=== PATIENT | male | born 1965 | race Hispanic/Latino ===

== ENCOUNTER 2017-04-23 20:14 | Emergency (ER) | payer BC, OTHER | END 2017-04-23 20:55 | disposition left against medical advice (07) | LOC: ERS 20:14 | DX: Z53.21 Procedure and treatment not carried out due to patient leaving prior to being seen by health care provider (principal) ==

== ENCOUNTER 2018-12-09 01:45 | Outpatient (CLI) | payer BC ==
[2018-12-09 17:01] LABS: #Basophils 0.1 thou/uL (0.0-0.2); #Eosinphils 0.3 thou/uL (0.0-0.7); #Lymphocytes 2.3 thou/uL (1.20-3.40); #Monocytes 0.6 thou/uL (0.11-0.59); %Basophils 0.7 % (0.0-1.0); %Eosinophils 3.1 % (0.0-10.0); %Lymphocytes 22.1 % (21.0-51.0); %Monocytes 5.7 % (0.0-10.0); %Neutrophils 68.4 % (42.0-75.0); Hemoglobin 13.7 g/dL (14.0-18.0); Mean Corpuscular HGB CONC 34.2 g/dL (32.0-36.0); Mean Corpuscular Volume 93.4 fL (78.0-98.0); Mean Platelet Volume 8.6 fL (7.4-10.4); Platelet Count 258 thou/uL (130-400); RBC Distribution Width 11.5 % (11.5-14.5); Red Blood Cell (RBC) Count 4.28 mill/uL (4.70-6.10); White Blood Cell (WBC) Count 10.2 thou/uL (4.8-10.8)
[2018-12-09 17:33] LABS: Anion Gap 13 mmol/L (10-20); BUN (Urea Nitrogen) 11 mg/dL (8.4-25.7); Calc. Creatinine Clearance 0 mL/min (70-130); Calcium 9.9 mg/dL (7.8-10.44); Carbon Dioxide 27 mmol/L (22-29); Chloride 101 mmol/L (98-107); Estimated GFR-MDRD Greater than 90; Glucose 274 mg/dL (70-105); Potassium 4.1 mmol/L (3.5-5.1); Sodium 137 mmol/L (136-145)
--- NOTE | 2018-12-11 09:17 | EKG ---
Test Reason : Blood Pressure : / mmHG Vent. Rate : 059 BPM Atrial Rate : 059 BPM P-R Int : 176 ms QRS Dur : 102 ms QT Int : 386 ms P-R-T Axes : 044 002 006 degrees QTc Int : 382 ms Sinus bradycardia Otherwise normal ECG When compared with ECG of 29-NOV-2015 04:54, No significant change was found Confirmed by DR. Aamir MOORE MD ([id number]) on 12/11/2018 9:17:02 AM Referred By: TREE Confirmed By:DR. Aamir MOORE MD
== END 2018-12-09 01:46 | disposition home or self-care (01) ==
LOC: LABBT 01:45
PROVIDERS: ATTEND Orthopaedic Surgery
DX: Z01.818 Encounter for other preprocedural examination (principal); G56.02 Carpal tunnel syndrome, left upper limb
CPT/HCPCS: 80048; 85025; 93005; 93010

== ENCOUNTER 2018-12-10 07:56 | Day surgery (SDC) | payer BC ==
[2018-12-09 16:23] VITALS: BMI 37.8
[2018-12-10] MEDS ORDERED: Clindamycin/D5W 600 mg/50 ml Premix Bag ONE (08:37)
[2018-12-10] MEDS ORDERED: Fentanyl 100 MCG/2 ML VIAL ONE (09:05)
[2018-12-10] MEDS ORDERED: Lidocaine 1% (PF) 30 ML VIAL ONE (09:10)
--- NOTE | 2018-12-10 11:51 | OP ---
DATE OF PROCEDURE: 12/10/2018 PREOPERATIVE DIAGNOSIS: Left carpal tunnel syndrome. POSTOPERATIVE DIAGNOSIS: Left carpal tunnel syndrome. PROCEDURES PERFORMED: 1. Left open carpal tunnel release. 2. Placement of short-arm volar splint, left upper extremity. UMBRELLA SUPERVISOR: None. ESTIMATED BLOOD LOSS: Minimal. COMPLICATIONS: None. ANESTHESIA: The patient had TIVA with local. DISPOSITION: He went back to [facility] in stable condition. INDICATIONS: This is a 53-year-old male, who has bilateral carpal tunnel syndrome with the left being worse than the right. At this time , he is presenting for left open carpal tunnel release. DESCRIPTION OF PROCEDURE: After all appropriate consent forms were explained and signed, the patient was taken back to the operating room and at this time was given IV sedation. A well-padded tourniquet was placed on the left arm and the arm was then prepped and draped in the standard surgical fashion. The incision was then drawn out and infiltrated with plain lidocaine. Limb was exsanguinated and tourniquet taken up to 250 mmHg. At this time, using Loupe magnification, a 15 blade was used to incise down through skin. Bipolar cautery was used to coagulate any brisk venous bleeding. We then placed a small hemostat to protect the underlying median nerve and transected the transverse carpal ligament using multiple 15 blades as well as scissors. Once this was done, a small finger was inserted to palpate for any remaining bands. At this time, a moist Ray-Yojana sponge was placed into the wound. Tourniquet was let down and pressure was held. Bipolar cautery used to coagulate any brisk venous bleeding. The wound was then irrigated with saline solution and we then evaluated the nerve. The nerve was found to be significantly injected, the nerve was intact, there were no masses noted, and the underlying flexor tendons were in good condition. At this time, we irrigated and dried the wound. We then placed multiple nylon stitches to close the incision. A bulky sterile hand dressing and a small volar splint were then placed. The patient was then awakened and taken to recovery in stable condition. All counts were correct at the end of the case. The patient received preoperative IV antibiotics. Job ID: [id number]
== END 2018-12-10 11:25 | disposition home or self-care (01) ==
LOC: SDC 07:56
PROVIDERS: ATTEND Orthopaedic Surgery
PROC: 01N50ZZ Release Median Nerve, Open Approach (ICD-10-PCS; principal; 2018-12-10)
DX: G56.03 Carpal tunnel syndrome, bilateral upper limbs (principal); G56.21 Lesion of ulnar nerve, right upper limb; I10 Essential (primary) hypertension; E11.9 Type 2 diabetes mellitus without complications; E78.00 Pure hypercholesterolemia, unspecified; E66.9 Obesity, unspecified; Z68.37 Body mass index [BMI] 37.0-37.9, adult; Z79.84 Long term (current) use of oral hypoglycemic drugs; Z79.899 Other long term (current) drug therapy; Z87.891 Personal history of nicotine dependence; Z88.1 Allergy status to other antibiotic agents
CPT/HCPCS: 36416; J2001; J3010; J3490

== ENCOUNTER 2019-02-23 12:49 | Outpatient (CLI) | payer BC ==
[2019-02-23 13:46] LABS: #Basophils 0.1 thou/uL (0.0-0.2); #Eosinphils 0.4 thou/uL (0.0-0.7); #Lymphocytes 2.8 thou/uL (1.20-3.40); #Monocytes 0.5 thou/uL (0.11-0.59); #Neutrophils 5.1 thou/uL (1.40-6.50); %Basophils 0.6 % (0.0-1.0); %Lymphocytes 31.6 % (21.0-51.0); %Monocytes 5.7 % (0.0-10.0); Mean Corpuscular HGB CONC 34.6 g/dL (32.0-36.0); Mean Corpuscular Volume 92.6 fL (78.0-98.0); Mean Platelet Volume 8.8 fL (7.4-10.4); Platelet Count 207 thou/uL (130-400); RBC Distribution Width 11.9 % (11.5-14.5); Red Blood Cell (RBC) Count 4.36 mill/uL (4.70-6.10); White Blood Cell (WBC) Count 8.8 thou/uL (4.8-10.8)
[2019-02-23 14:21] LABS: Anion Gap 16 mmol/L (10-20); BUN (Urea Nitrogen) 20 mg/dL (8.4-25.7); Calc. Creatinine Clearance 0 mL/min (70-130); Calcium 10.2 mg/dL (7.8-10.44); Carbon Dioxide 26 mmol/L (22-29); Chloride 103 mmol/L (98-107); Estimated GFR-MDRD Greater than 90; Glucose 134 mg/dL (70-105); Potassium 4.5 mmol/L (3.5-5.1); Sodium 140 mmol/L (136-145)
== END 2019-02-23 12:50 | disposition home or self-care (01) ==
LOC: LABBT 12:49
PROVIDERS: ATTEND Orthopaedic Surgery
DX: Z01.818 Encounter for other preprocedural examination (principal); G56.01 Carpal tunnel syndrome, right upper limb
CPT/HCPCS: 80048; 85025; 93005; 93010

== ENCOUNTER 2020-05-22 08:46 | Outpatient (CLI) | payer BC ==
--- NOTE | 2020-05-22 09:48 | MRI ---
MRI cervical spinewithout contrast: INDICATIONS: Cervical pain. Paresthesias COMPARISON:None FINDINGS: Vertebral bodies maintain normal height and alignment and exhibit normal signal. Disc spaces are preserved. No significant disc bulge or spondylosis at any of the visualized cervical levels. C2-3: No central canal or foraminal stenosis. C3-4:No central canal or foraminal stenosis. C4-5:No significant disc bulge or spondylosis. Mild left foraminal narrowing due to facet and uncinat e hypertrophy. C5-6:No central canal or foraminal stenosis. C6-7:No central canal or foraminal stenosis. C7-T1:No central canal or foraminal stenosis. Cervical cord:Cervical spinal cord exhibits normal signal. Soft tissues:No soft tissue abnormality identified. IMPRESSION: 1.No significant disc bulge or spondylosis. Mild facet and uncinate hypertrophy at several levels. Th is produces mild left foraminal narrowing at C4-5.
== END 2020-05-22 08:47 | disposition home or self-care (01) ==
LOC: BICMRI 08:46
PROVIDERS: ATTEND Orthopaedic Surgery
DX: R20.0 Anesthesia of skin (principal); R20.2 Paresthesia of skin; M50.821 Other cervical disc disorders at C4-C5 level; M48.02 Spinal stenosis, cervical region
CPT/HCPCS: 72141

== ENCOUNTER 2021-04-11 11:22 | Outpatient (CLI) | payer BC | END 2021-04-11 11:23 | disposition home or self-care (01) | LOC: BICRAD 11:22 | PROVIDERS: ATTEND Physician Assistant | DX: M25.561 Pain in right knee (principal) ==

== ENCOUNTER 2021-05-21 09:40 | Outpatient (CLI) | payer BC | END 2021-05-21 09:41 | disposition home or self-care (01) | LOC: BICMRI 09:40 | PROVIDERS: ATTEND Orthopaedic Surgery | DX: M23.91 Unspecified internal derangement of right knee (principal); S83.241A Other tear of medial meniscus, current injury, right knee, initial encounter; M94.261 Chondromalacia, right knee; M65.861 Other synovitis and tenosynovitis, right lower leg; M71.21 Synovial cyst of popliteal space [Baker], right knee; I86.8 Varicose veins of other specified sites ==

== ENCOUNTER 2021-07-26 15:46 | Outpatient (CLI) | payer BC ==
[2021-07-26 18:16] LABS: #Basophils 0.1 10x3/uL (0.0-0.2); #Eosinphils 0.2 10x3/uL (0.0-0.5); #Monocytes 0.7 10x3/uL (0.0-1.1); #Neutrophils 7.2 10x3/uL (1.5-8.4); %Basophils 0.7 % (0.0-2.0); %Eosinophils 1.4 % (0.0-6.0); %Lymphocytes 23.3 % (18.0-47.0); %Monocytes 6.2 % (0.0-10.0); %Neutrophils 68.1 % (40.0-75.0); Hemoglobin 12.2 g/dL (13.5-17.5); Mean Corpuscular HGB CONC 33.4 g/dL (32.0-36.0); Mean Corpuscular Hemoglobin 31.5 pg (27.0-33.0); Mean Corpuscular Volume 94.3 fl (81.2-95.1); Mean Platelet Volume 11.4 fl (7.4-10.4); Platelet Count 292 10x3/uL (150-450); RBC Distribution Width 13.5 % (11.5-14.5); Red Blood Cell (RBC) Count 3.87 10x6/uL (4.32-5.72); White Blood Cell (WBC) Count 10.5 10x3/uL (3.5-10.5)
[2021-07-26 18:38] LABS: Anion Gap 14 mmol/L (10-20); BUN (Urea Nitrogen) 18 mg/dL (8.4-25.7); Calc. Creatinine Clearance 0 mL/min (70-130); Carbon Dioxide 28 mmol/L (22-29); Chloride 104 mmol/L (98-107); Glucose 140 mg/dL (70-105); Potassium 4.8 mmol/L (3.5-5.1); Sodium 141 mmol/L (136-145)
[2021-07-26 23:51] LABS: SARS-CoV-2 PCR by NAA Not Detected (NotDetected)
== END 2021-07-26 15:47 | disposition home or self-care (01) ==
LOC: LABBT 15:46
PROVIDERS: ATTEND Orthopaedic Surgery
DX: Z01.818 Encounter for other preprocedural examination (principal); M17.11 Unilateral primary osteoarthritis, right knee; Z20.822 Contact with and (suspected) exposure to COVID-19
CPT/HCPCS: 71046; 80048; 85025; 93005; 93010; U0003; U0005

== ENCOUNTER 2021-07-31 06:08 | Day surgery (SDC) | payer BC ==
[2021-07-22 14:01] VITALS: BMI 34.7
[2021-07-31] MEDS ORDERED: PROPOFOL 20 ML ONE (07:00)
[2021-07-31] MEDS ORDERED: Clindamycin/D5W 600 mg/50 ml Premix Bag ONE (07:24)
[2021-07-31] MEDS ORDERED: Fentanyl 100 MCG/2 ML VIAL ONE (07:46)
[2021-07-31] MEDS ORDERED: Midazolam HCl 2 mg/2 ml Vial ONE (07:46)
[2021-07-31] MEDS ORDERED: PROPOFOL 200 MG/20 ML VIAL ONE (07:47)
[2021-07-31] MEDS ORDERED: Ketorolac Tromethamine 30 MG/ML VIAL ONE (07:47)
[2021-07-31] MEDS ORDERED: Bupivacaine PF 0.5% 30 ML VIAL ONE (07:47)
[2021-07-31] MEDS ORDERED: Ondansetron PF 4 MG/2 ML Vial ONE (07:47)
[2021-07-31] MEDS ORDERED: Lidocaine 1% PF 5 ML VIAL ONE (07:47)
[2021-07-31] MEDS ORDERED: Lidocaine 2% w/Epinephrine 1:200K 20 ML VIAL ONE (07:47)
== END 2021-07-31 10:23 | disposition home or self-care (01) ==
LOC: SDC 06:08
PROVIDERS: ATTEND Orthopaedic Surgery
PROC: 0SBC4ZZ Excision of Right Knee Joint, Percutaneous Endoscopic Approach (ICD-10-PCS; principal; 2021-07-31)
DX: S83.241A Other tear of medial meniscus, current injury, right knee, initial encounter (principal); M23.8X1 Other internal derangements of right knee; M22.3X1 Other derangements of patella, right knee; M23.41 Loose body in knee, right knee; M71.21 Synovial cyst of popliteal space [Baker], right knee; M17.11 Unilateral primary osteoarthritis, right knee; M94.261 Chondromalacia, right knee; M65.88 Other synovitis and tenosynovitis, other site; E11.9 Type 2 diabetes mellitus without complications; E78.00 Pure hypercholesterolemia, unspecified; I10 Essential (primary) hypertension; E66.9 Obesity, unspecified; Z68.34 Body mass index [BMI] 34.0-34.9, adult; Z87.891 Personal history of nicotine dependence; Z79.1 Long term (current) use of non-steroidal anti-inflammatories (NSAID); Z79.4 Long term (current) use of insulin; Z79.82 Long term (current) use of aspirin; Z79.84 Long term (current) use of oral hypoglycemic drugs; Z79.899 Other long term (current) drug therapy; Z88.1 Allergy status to other antibiotic agents
CPT/HCPCS: 36416; J1885; J2250; J2405; J2704; J3010; J3490; S0020

== ENCOUNTER 2022-04-16 08:38 | Outpatient (CLI) | payer BC | END 2022-04-16 08:39 | disposition home or self-care (01) | LOC: MRI 08:38 | PROVIDERS: ATTEND Orthopaedic Surgery Hand Surgery | DX: M65.4 Radial styloid tenosynovitis [de Quervain] (principal) ==

== ENCOUNTER 2022-06-18 13:44 | Outpatient (CLI) | payer BC ==
[2022-06-18] MEDS ORDERED: Magnevist 469MG/ML 20 ML VIAL ONE (16:08)
== END 2022-06-18 13:45 | disposition home or self-care (01) ==
LOC: TBSIIMAG 13:44
PROVIDERS: ATTEND Orthopaedic Surgery
DX: M77.12 Lateral epicondylitis, left elbow (principal); S53.32XA Traumatic rupture of left ulnar collateral ligament, initial encounter; S66.319A Strain of extensor muscle, fascia and tendon of unspecified finger at wrist and hand level, initial encounter; M25.421 Effusion, right elbow; S66.119A Strain of flexor muscle, fascia and tendon of unspecified finger at wrist and hand level, initial encounter; M67.922 Unspecified disorder of synovium and tendon, left upper arm
CPT/HCPCS: A9579

== ENCOUNTER 2022-08-29 16:32 | Outpatient (CLI) | payer BC | END 2022-08-29 16:33 | disposition home or self-care (01) | LOC: SCSRAD 16:32 | PROVIDERS: ATTEND Physician Assistant | DX: Z01.811 Encounter for preprocedural respiratory examination (principal) | CPT/HCPCS: 71046 ==

== ENCOUNTER 2023-12-07 16:00 | Outpatient (CLI) | payer BC | END 2023-12-07 16:01 | disposition home or self-care (01) | LOC: SLEEPLAB 16:00 | PROVIDERS: ATTEND Internal Medicine Cardiovascular Disease | DX: G47.33 Obstructive sleep apnea (adult) (pediatric) (principal); R53.83 Other fatigue; R09.89 Other specified symptoms and signs involving the circulatory and respiratory systems; E66.9 Obesity, unspecified; Z68.32 Body mass index [BMI] 32.0-32.9, adult | CPT/HCPCS: 95800 ==

== ENCOUNTER 2024-01-05 14:56 | Outpatient (CLI) | payer BC ==
[2024-01-05 16:44] LABS: #Basophils 0.04 10x3/uL (0.0-0.2); #Eosinphils 0.19 10x3/uL (0.0-0.5); #Monocytes 0.48 10x3/uL (0.0-1.1); #Neutrophils 4.67 10x3/uL (1.5-8.4); %Basophils 0.5 % (0.0-2.0); %Eosinophils 2.6 % (0.0-6.0); %Lymphocytes 25.8 % (18.0-47.0); %Monocytes 6.6 % (0.0-10.0); %Neutrophils 64.2 % (40.0-75.0); Hemoglobin 11.8 g/dL (13.5-17.5); Mean Corpuscular HGB CONC 33.7 g/dL (32.0-36.0); Mean Corpuscular Hemoglobin 31.1 pg (27.0-33.0); Mean Corpuscular Volume 92.3 fL (81.2-95.1); Mean Platelet Volume 10.2 fL (7.4-10.4); Platelet Count 291 10x3/uL (150-450); RBC Distribution Width 13.3 % (11.5-14.5); Red Blood Cell (RBC) Count 3.79 10x6/uL (4.32-5.72); White Blood Cell (WBC) Count 7.3 10x3/uL (3.5-10.5)
[2024-01-05 16:48] LABS: Anion Gap 13 mmol/L (10-20); BUN (Urea Nitrogen) 25 mg/dL (8.4-25.7); Calc. Creatinine Clearance 0 mL/min (70-130); Calcium 9.3 mg/dL (7.8-10.44); Carbon Dioxide 26 mmol/L (22-29); Chloride 105 mmol/L (98-107); Estimated GFR 101; Glucose 94 mg/dL (70-105); Potassium 4.2 mmol/L (3.5-5.1); Sodium 140 mmol/L (136-145)
== END 2024-01-05 14:57 | disposition home or self-care (01) ==
LOC: LABBT 14:56
PROVIDERS: ATTEND Orthopaedic Surgery
DX: Z01.818 Encounter for other preprocedural examination (principal); M75.112 Incomplete rotator cuff tear or rupture of left shoulder, not specified as traumatic
CPT/HCPCS: 80048; 85025; 93005; 93010

== ENCOUNTER 2024-01-08 08:32 | Day surgery (SDC) | payer BC ==
[2024-01-05 16:06] VITALS: BMI 32.3
[2024-01-08] MEDS ORDERED: fentaNYL 50 mcg/mL 1 mL Vial ONE ×2 (09:41→13:52)
[2024-01-08] MEDS ORDERED: Midazolam HCl 2 mg/2 ml Vial ONE (09:41)
[2024-01-08] MEDS ORDERED: Bupivacaine PF 0.5% 30 ML VIAL ONE (09:42)
[2024-01-08] MEDS ORDERED: Bupivacaine 0.25% HCL 30 ML VIAL ONE (11:29)
[2024-01-08] MEDS ORDERED: EPINEPHrine 1 MG/ML VIAL ONE (11:29)
[2024-01-08] MEDS ORDERED: Ondansetron PF 4 MG/2 ML Vial IVP PRN (11:30)
[2024-01-08] MEDS ORDERED: Zolpidem Tartrate 5 MG TAB PO PRN (11:30)
[2024-01-08] MEDS ORDERED: Promethazine HCl 25 MG/ML VIAL IM PRN (11:30)
[2024-01-08] MEDS ORDERED: traMADol HCl 50 MG TAB PO PRN ×2 (11:30)
[2024-01-08] MEDS ORDERED: HYDROcodone/Acetaminophen 10/325 mg Tablet PO PRN ×2 (11:30)
[2024-01-08] MEDS ORDERED: Ropivacaine 0.2% 550 ML 550 ML NERVE BLCK SCH (11:30)
[2024-01-08] MEDS ORDERED: Clindamycin/D5W 600 mg/50 ml Premix Bag ONE (11:35)
[2024-01-08] MEDS ORDERED: fentaNYL PF 100 MCG/2 ML SYRINGE ONE (11:46)
[2024-01-08] MEDS ORDERED: Rocuronium Bromide 10 MG/ML (10ML VIAL) ONE (11:46)
[2024-01-08] MEDS ORDERED: Lidocaine 1% PF 5 ML VIAL ONE (11:46)
[2024-01-08] MEDS ORDERED: Dexamethasone 20 MG/5 ML VIAL ONE (12:19)
[2024-01-08] MEDS ORDERED: Ketorolac Tromethamine 30 MG (1 mL) VIAL ONE (12:19)
[2024-01-08] MEDS ORDERED: Ondansetron PF 4 MG/2 ML Vial ONE (12:19)
[2024-01-08] MEDS ORDERED: Glycopyrrolate 0.2 MG/ML 5 ML SYRINGE ONE (12:27)
[2024-01-08] MEDS ORDERED: ePHEDrine Sulfate 50 MG/10 ML VIAL ONE (12:38)
[2024-01-08] MEDS ORDERED: NEOSTIGMINE 3 MG/3 ML SYRINGE ONE (13:16)
[2024-01-08] MEDS ORDERED: Promethazine HCl 25 MG/ML VIAL ONE (14:31)
[2024-01-08] MEDS ORDERED: HYDROcodone/Acetaminophen 5/325 mg Tablet ONE (15:03)
== END 2024-01-08 15:57 | disposition home or self-care (01) ==
LOC: SDC 08:32
PROVIDERS: ATTEND Orthopaedic Surgery
PROC: 0LS40ZZ Reposition Left Upper Arm Tendon, Open Approach (ICD-10-PCS; principal; 2024-01-08)
PROC: 0RNK4ZZ Release Left Shoulder Joint, Percutaneous Endoscopic Approach (ICD-10-PCS; principal; 2024-01-08)
DX: M75.112 Incomplete rotator cuff tear or rupture of left shoulder, not specified as traumatic (principal); S43.432A Superior glenoid labrum lesion of left shoulder, initial encounter; S46.212A Strain of muscle, fascia and tendon of other parts of biceps, left arm, initial encounter; M54.16 Radiculopathy, lumbar region; E11.9 Type 2 diabetes mellitus without complications; E78.00 Pure hypercholesterolemia, unspecified; I10 Essential (primary) hypertension; E66.9 Obesity, unspecified; Z68.32 Body mass index [BMI] 32.0-32.9, adult; Z79.82 Long term (current) use of aspirin; Z79.4 Long term (current) use of insulin; Z79.51 Long term (current) use of inhaled steroids; Z79.84 Long term (current) use of oral hypoglycemic drugs; Z79.899 Other long term (current) drug therapy; Z88.8 Allergy status to other drugs, medicaments and biological substances; Z88.1 Allergy status to other antibiotic agents; X58.XXXA Exposure to other specified factors, initial encounter; Z98.890 Other specified postprocedural states; Z87.891 Personal history of nicotine dependence
CPT/HCPCS: 36416; A4306; C1713; J0171; J0665; J1100; J1885; J2250; J2405; J2550; J2795; J3010; J3490